=== PATIENT | male | born 1965 | race African-American/Black ===

== ENCOUNTER 2023-07-07 21:56 | Inpatient (IN) | payer OTHER, SELFPAY ==
[~2023-07-07 21:56] MED LIST: Iopamidol 370 76% 100 ML VIAL ONE
[2023-07-07 22:38] LABS: ALT (SGPT) 23 U/L (8-55); AST (SGOT) 26 U/L (5-34); Albumin 4.1 g/dL (3.5-5.0); Alkaline Phosphatase 138 U/L (40-110); Anion Gap 16 mmol/L (10-20); BUN (Urea Nitrogen) 17 mg/dL (8.4-25.7); Bilirubin, Total 0.6 mg/dL (0.2-1.2); Calc. Creatinine Clearance 0 mL/min (70-130); Calcium 9.4 mg/dL (7.8-10.44); Carbon Dioxide 22 mmol/L (22-29); Chloride 103 mmol/L (98-107); Estimated GFR 53; Globulin 3.7 g/dL (2.4-3.5); Glucose 121 mg/dL (70-105); Potassium 4.2 mmol/L (3.5-5.1); Protein, Total 7.8 g/dL (6.0-8.3); Sodium 137 mmol/L (136-145)
[2023-07-07 22:53] LABS: #Eosinphils 0.1 10x3/uL (0.0-0.5); #Monocytes 0.8 10x3/uL (0.0-1.1); #Neutrophils 4.2 10x3/uL (1.5-8.4); %Basophils 0.4 % (0.0-2.0); %Eosinophils 1.6 % (0.0-6.0); %Lymphocytes 23.3 % (18.0-47.0); %Monocytes 11.2 % (0.0-10.0); %Neutrophils 63.2 % (40.0-75.0); Hematocrit 48.2 % (38.8-50.0); Hemoglobin 16.4 g/dL (13.5-17.5); Mean Corpuscular Hemoglobin 30.7 pg (27.0-33.0); Mean Corpuscular Volume 90.1 fl (81.2-95.1); Mean Platelet Volume 10.1 fl (7.4-10.4); Platelet Count 385 10x3/uL (150-450); RBC Distribution Width 12.4 % (11.5-14.5); Red Blood Cell (RBC) Count 5.35 10x6/uL (4.32-5.72); White Blood Cell (WBC) Count 6.7 10x3/uL (3.5-10.5)
[2023-07-07 23:16] LABS: SARS-CoV-2 NAA Rapid Test Not Detected (NotDetected)
[2023-07-07 23:39] LABS: Bilirubin Neg (Negative); Blood, Urine Negative (Negative); Clarity Clear (Clear); Glucose, Urine (Dipstick) Normal (Negative); Ketone, Urine Negative (Negative); Leukocyte Negative (Negative); Nitrite Negative (Negative); Protein, Urine (Dipstick) 30 mg/dl (Neg-Trace); Urobilinogen Normal mg/dL (Less than 2)
[2023-07-08 00:01] LABS: Bacteria/HPF None Seen HPF (None Seen); CAUTI Indications for Culture Alt mental st,lethar; RBC/HPF None Seen HPF (0-3); Squamous Epithelial None Seen HPF (0-3); WBC/HPF None Seen HPF (0-3)
[2023-07-08] MEDS ORDERED: Acetaminophen 500 MG TAB ONE (00:01)
[2023-07-08 00:02] LABS: Urine Culture Reflex No No
[2023-07-08] MEDS ORDERED: Guaifenesin DM 100-10/5 ML UDCUP PO PRN (00:49)
[2023-07-08] MEDS ORDERED: Calcium Carbonate 500 MG ChewTAB PO PRN (00:49)
[2023-07-08] MEDS ORDERED: niCARdipine 25 MG/10 ML SDV ONE ×2 (01:00→05:42)
[2023-07-08] MEDS ORDERED: niCARdipine 25 MG in Sodium Chloride 0.9% 250 ML 250 ML IVPB SCH (01:00)
[2023-07-08 04:53] LABS: Anion Gap 16 mmol/L (10-20); BUN (Urea Nitrogen) 15 mg/dL (8.4-25.7); Calc. Creatinine Clearance 0 mL/min (70-130); Calcium 9.7 mg/dL (7.8-10.44); Carbon Dioxide 22 mmol/L (22-29); Cardiac Risk 4.1 (Less than 4.5); Chloride 103 mmol/L (98-107); Cholesterol 243 mg/dl (< 200 Desired); Estimated GFR 65; Glucose 134 mg/dL (70-105); HDL Cholesterol 60 mg/dL (>60 Neg Risk); LDL Cholesterol, Calculated 169 mg/dL; Potassium 3.5 mmol/L (3.5-5.1); Sodium 137 mmol/L (136-145); Triglycerides 72 mg/dL (Less than 150)
[2023-07-08 04:59] LABS: Troponin I 0.027 ng/mL (< 0.028)
[2023-07-08] MEDS: Acetaminophen 325 MG TAB PO PRN (06:35)
[2023-07-08] MEDS: Ondansetron PF 4 MG/2 ML Vial IVP PRN (07:12)
[2023-07-08] MEDS: Spironolactone 25 MG TAB PO SCH (08:42)
[2023-07-08] MEDS: Folic Acid 1 MG TAB PO SCH (08:42)
[2023-07-08] MEDS: Carvedilol 12.5 MG TAB PO SCH (08:42)
[2023-07-08] MEDS: Aspirin 81 mg Enteric Coated Tablet PO SCH (08:42)
[2023-07-08] MEDS: Enoxaparin 40 MG (0.4 mL) SYRINGE SC SCH (08:43)
[2023-07-08] MEDS: Losartan 25 MG TAB PO SCH ×2 (08:43→16:20)
[2023-07-08] MEDS: Thiamine 100 MG TAB PO SCH (08:43)
[2023-07-08] MEDS: niCARdipine 25 MG in Sodium Chloride 0.9% 250 ML 250 ML IVPB SCH (13:14)
[2023-07-08] MEDS ORDERED: Lorazepam 2 MG/ML VIAL IM PRN (14:31)
[2023-07-08] MEDS ORDERED: Ondansetron ODT 4 MG TAB PO PRN (14:31)
[2023-07-08] MEDS ORDERED: Electrolyte Replacement Protocol 1 EACH FS SCH (14:45)
[2023-07-08] MEDS: Magnesium 2 GM/50 ML(in water) 2 GM in Premix 1 BAG IVPB SCH (16:19)
[2023-07-08] MEDS: Multivit, Therapeutic 1 TAB PO SCH (16:20)
[2023-07-08] MEDS: Potassium Chloride 20 MEQ TAB PO SCH (16:20)
[2023-07-08] MEDS: Carvedilol 25 MG TAB PO SCH (16:21)
[2023-07-08] MEDS: Atorvastatin Calcium 20 MG TAB PO SCH (19:54)
[2023-07-09] MEDS: Lorazepam 1 MG TAB PO PRN (00:20)
[2023-07-09] MEDS: Lorazepam 2 MG/ML VIAL SLOW IVP PRN (00:33)
[2023-07-09 03:21] LABS: #Eosinphils 0.1 10x3/uL (0.0-0.5); #Monocytes 1.3 10x3/uL (0.0-1.1); #Neutrophils 7.6 10x3/uL (1.5-8.4); %Basophils 0.3 % (0.0-2.0); %Eosinophils 0.5 % (0.0-6.0); %Lymphocytes 12.6 % (18.0-47.0); %Monocytes 12.9 % (0.0-10.0); %Neutrophils 73.5 % (40.0-75.0); Hematocrit 50.7 % (38.8-50.0); Hemoglobin 17.2 g/dL (13.5-17.5); Mean Corpuscular HGB CONC 33.9 g/dL (32.0-36.0); Mean Corpuscular Hemoglobin 31.1 pg (27.0-33.0); Mean Corpuscular Volume 91.7 fl (81.2-95.1); Mean Platelet Volume 9.8 fl (7.4-10.4); Platelet Count 469 10x3/uL (150-450); RBC Distribution Width 12.5 % (11.5-14.5); Red Blood Cell (RBC) Count 5.53 10x6/uL (4.32-5.72); White Blood Cell (WBC) Count 10.4 10x3/uL (3.5-10.5)
[2023-07-09 03:38] LABS: Anion Gap 15 mmol/L (10-20); BUN (Urea Nitrogen) 18 mg/dL (8.4-25.7); Calc. Creatinine Clearance 54 mL/min (70-130); Calcium 9.4 mg/dL (7.8-10.44); Carbon Dioxide 23 mmol/L (22-29); Chloride 102 mmol/L (98-107); Estimated GFR 51; Glucose 150 mg/dL (70-105); Magnesium 2.4 mg/dL (1.6-2.6); Potassium 4.3 mmol/L (3.5-5.1); Sodium 136 mmol/L (136-145)
[2023-07-09] MEDS: Losartan 50 MG TAB PO SCH (08:07)
[2023-07-09] MEDS: Multivit, Therapeutic 1 TAB PO SCH (08:08)
[2023-07-09 10:15] LABS: Magnesium 2.2 mg/dL (1.6-2.6); Phosphorus 3.2 mg/dL (2.3-4.7)
[2023-07-09 12:26] LABS: Free T4 (Free Thyroxine) 1.26 ng/dL (0.70-1.48)
[2023-07-09 15:40] LABS: Thyroid Stimulating Hormone 0.2171 uIU/mL (0.35-4.94)
[2023-07-09] MEDS: Morphine 2 MG/ML VIAL SLOW IVP SCH (20:28)
[2023-07-09] MEDS: Ketorolac Tromethamine 30 MG (1 mL) VIAL IVP SCH (23:49)
[2023-07-10 03:17] LABS: Hematocrit 52.1 % (38.8-50.0); Hemoglobin 17.5 g/dL (13.5-17.5); Mean Corpuscular HGB CONC 33.6 g/dL (32.0-36.0); Mean Corpuscular Volume 92.2 fl (81.2-95.1); Mean Platelet Volume 9.9 fl (7.4-10.4); Platelet Count 455 10x3/uL (150-450); RBC Distribution Width 12.8 % (11.5-14.5); Red Blood Cell (RBC) Count 5.65 10x6/uL (4.32-5.72); White Blood Cell (WBC) Count 24.7 10x3/uL (3.5-10.5)
[2023-07-10 03:24] LABS: MDiff Complete? YES
[2023-07-10] MEDS: Lorazepam 2 MG/ML VIAL SLOW IVP SCH (03:34)
[2023-07-10 03:40] LABS: ALT (SGPT) 61 U/L (8-55); AST (SGOT) 49 U/L (5-34); Albumin 3.7 g/dL (3.5-5.0); Alkaline Phosphatase 155 U/L (40-110); Anion Gap 16 mmol/L (10-20); BUN (Urea Nitrogen) 25 mg/dL (8.4-25.7); Bilirubin, Total 0.9 mg/dL (0.2-1.2); Calc. Creatinine Clearance 55 mL/min (70-130); Calcium 9.5 mg/dL (7.8-10.44); Carbon Dioxide 22 mmol/L (22-29); Chloride 104 mmol/L (98-107); Estimated GFR 52; Globulin 4.1 g/dL (2.4-3.5); Glucose 141 mg/dL (70-105); Protein, Total 7.8 g/dL (6.0-8.3); Sodium 137 mmol/L (136-145)
[2023-07-10 03:47] LABS: Platelet Adequacy Comment Appears Increased; RBC Morph Comment Within Normal Limits
[2023-07-10 03:49] LABS: Band 7 % (5-11); Eosinophils 1 % (0-10); Lymphocytes 9 % (21-51); Metamyelocyte 2 % (0-0); Monocytes 8 % (0-10); Neutrophil 73 % (42-75)
[2023-07-10] MEDS: Carvedilol 25 MG TAB PO SCH (08:48)
[2023-07-10 10:29] LABS: Complement-C4 48 mg/dL (15-53)
[2023-07-10] MEDS: Vancomycin 1.5 GRAM/300 ML BAG 1.5 GM in Premix 1 BAG IVPB SCH (11:19)
[2023-07-10] MEDS: cefTRIAXone\\ROCEPHIN 2 GM in Sodium Chloride 0.9% 100 ML IVPB SCH (11:33)
[2023-07-10] MEDS: Azithromycin 500 MG in Sodium Chloride 0.9% 250 ML 250 ML IVPB SCH (11:34)
[2023-07-10 12:34] LABS: ANA Symphony (Qualitative) Negative (Negative); ANA Symphony (Quantitative) 0.2 Ratio (< 0.7 Negative); EliA APS New Method **** NEW METHOD ****; EliA RAS New Method **** NEW METHOD ****; Mitochondrial Ab 1.4 U/mL (<4 Negative); Thyroid Peroxidase IgG Ab 6.3 IU/mL (<25 Normal); beta-2-Glycoprotein I IgA Ab 5.3 U/mL (<7 Negative); dsDNA IgG Antibody 1.4 IU/mL (<10 Negative)
[2023-07-10] MEDS: Lorazepam 1 MG TAB PO PRN (12:39)
[2023-07-10] MEDS: Morphine 2 MG/ML VIAL SLOW IVP PRN (16:00)
[2023-07-10 16:17] LABS: Bilirubin Neg (Negative); Blood, Urine 10 (Negative); Clarity Clear (Clear); Glucose, Urine (Dipstick) 50 mg/dL (Negative); Ketone, Urine Negative (Negative); Leukocyte Negative (Negative); Nitrite Negative (Negative); Protein, Urine (Dipstick) 100 mg/dl (Neg-Trace)
[2023-07-10 16:34] LABS: Bacteria/HPF 1+ HPF (None Seen); CAUTI Indications for Culture Immunosuppressed; Mucous/LPF 1+ LPF (<2+); RBC/HPF 0-3 HPF (0-3); Squamous Epithelial 0-3 HPF (0-3); WBC/HPF 0-3 HPF (0-3)
[2023-07-10 16:35] LABS: Urine Culture Reflex Yes Yes
[2023-07-10] MEDS ORDERED: Vancomycin 1 GM in Premix 1 BAG IVPB SCH (21:00)
[2023-07-10] MEDS: Lorazepam 0.5 MG TAB PO PRN (22:42)
[2023-07-11 04:08] LABS: Hematocrit 53.4 % (38.8-50.0); Hemoglobin 18.3 g/dL (13.5-17.5); Mean Corpuscular HGB CONC 34.3 g/dL (32.0-36.0); Mean Corpuscular Hemoglobin 30.9 pg (27.0-33.0); Mean Corpuscular Volume 90.2 fl (81.2-95.1); Mean Platelet Volume 9.7 fl (7.4-10.4); Platelet Count 517 10x3/uL (150-450); RBC Distribution Width 12.9 % (11.5-14.5); Red Blood Cell (RBC) Count 5.92 10x6/uL (4.32-5.72); White Blood Cell (WBC) Count 19.3 10x3/uL (3.5-10.5)
[2023-07-11] MEDS: Morphine 4 MG/ML VIAL SLOW IVP PRN (04:11)
[2023-07-11 04:15] LABS: MDiff Complete? YES
[2023-07-11 04:34] LABS: ALT (SGPT) 60 U/L (8-55); AST (SGOT) 35 U/L (5-34); Albumin 3.5 g/dL (3.5-5.0); Alkaline Phosphatase 150 U/L (40-110); Anion Gap 17 mmol/L (10-20); BUN (Urea Nitrogen) 45 mg/dL (8.4-25.7); Bilirubin, Total 0.7 mg/dL (0.2-1.2); Calc. Creatinine Clearance 47 mL/min (70-130); Calcium 9.8 mg/dL (7.8-10.44); Carbon Dioxide 25 mmol/L (22-29); Chloride 103 mmol/L (98-107); Estimated GFR 46; Globulin 4.4 g/dL (2.4-3.5); Glucose 154 mg/dL (70-105); Potassium 4.8 mmol/L (3.5-5.1); Protein, Total 7.9 g/dL (6.0-8.3); Sodium 140 mmol/L (136-145)
[2023-07-11 04:39] LABS: Platelet Adequacy Comment Appears Increased; RBC Morph Comment Within Normal Limits
[2023-07-11 04:42] LABS: Band 8 % (5-11); Eosinophils 1 % (0-10); Lymphocytes 8 % (21-51); Metamyelocyte 1 % (0-0); Monocytes 6 % (0-10); Neutrophil 76 % (42-75)
[2023-07-11] MEDS: Vancomycin 1 GM in Sodium Chloride 0.9% 250 ML 250 ML IVPB SCH (04:42)
[2023-07-11] MEDS: Lorazepam 1 MG TAB PO PRN (08:44)
[2023-07-11] MEDS: NOREPINEPHRINE 8 MG/250 ML-D5W 250 ML ONE (10:15)
[2023-07-11 10:40] LABS: Hematocrit 52.5 % (38.8-50.0); Hemoglobin 16.9 g/dL (13.5-17.5); MDiff Complete? YES; Mean Corpuscular HGB CONC 32.2 g/dL (32.0-36.0); Mean Corpuscular Hemoglobin 31.4 pg (27.0-33.0); Mean Corpuscular Volume 97.6 fl (81.2-95.1); Mean Platelet Volume 10.2 fl (7.4-10.4); Platelet Count 553 10x3/uL (150-450); RBC Distribution Width 13.2 % (11.5-14.5); Red Blood Cell (RBC) Count 5.38 10x6/uL (4.32-5.72); White Blood Cell (WBC) Count 21.9 10x3/uL (3.5-10.5)
[2023-07-11] MEDS ORDERED: Ventilator Sedation Protocol FS PRN (10:45)
[2023-07-11] MEDS ORDERED: Vasopressin 20 UNITS in Sodium Chloride 0.9% 50 ML IV SCH (10:45)
[2023-07-11 10:50] LABS: INR-International Normal Ratio 1.1; PTT 29.9 sec (22.0-33.0); Prothrombin Time 12.2 sec (9.5-12.1)
[2023-07-11 10:55] LABS: ALT (SGPT) 52 U/L (8-55); AST (SGOT) 34 U/L (5-34); Albumin 3.1 g/dL (3.5-5.0); Alkaline Phosphatase 152 U/L (40-110); Anion Gap 19 mmol/L (10-20); BUN (Urea Nitrogen) 54 mg/dL (8.4-25.7); Bilirubin, Total 0.4 mg/dL (0.2-1.2); CK (CPK) 76 U/L (30-200); Calc. Creatinine Clearance 33 mL/min (70-130); Carbon Dioxide 22 mmol/L (22-29); Chloride 107 mmol/L (98-107); Estimated GFR 28; Globulin 3.3 g/dL (2.4-3.5); Glucose 157 mg/dL (70-105); Magnesium 2.9 mg/dL (1.6-2.6); Phosphorus 8.5 mg/dL (2.3-4.7); Potassium 6.2 mmol/L (3.5-5.1); Protein, Total 6.4 g/dL (6.0-8.3); Sodium 142 mmol/L (136-145)
[2023-07-11] MEDS ORDERED: Dextrose 5% in Water 1,000 ML IV PRN (10:55)
[2023-07-11] MEDS ORDERED: Glucagon 1 MG/ML KIT IM PRN (10:55)
[2023-07-11] MEDS ORDERED: Propofol BOLUS 1,000 MG/100 ML VIAL IV PRN (11:00)
[2023-07-11] MEDS ORDERED: Phenylephrine 40 MG in Sodium Chloride 0.9% 250 ML 250 ML IVPB SCH (11:00)
[2023-07-11] MEDS ORDERED: Fentanyl BOLUS 250 ML IVPB PRN (11:00)
[2023-07-11] MEDS ORDERED: DISCONTINUE PREVIOUS NARCOTIC PAIN MEDICATIONS AND BENZODIAZEPINES FS SCH (11:00)
[2023-07-11] MEDS: Carvedilol 12.5 MG TAB PO SCH (11:09)
[2023-07-11] MEDS: Losartan 50 MG TAB PO SCH (11:09)
[2023-07-11] MEDS: Calcium Gluc 4.6 MEQ/10 ML (100 MG/ML) SLOW IVP SCH (11:10)
[2023-07-11] MEDS: Insulin Regular 300 UNITS/3 ML VIAL IVP SCH (11:10)
[2023-07-11] MEDS: Phenylephrine 40 MG/NS 250 ML 40 MG in Premix 1 BAG IVPB SCH (11:10)
[2023-07-11] MEDS ORDERED: DOPamine 400 MG/D5W 250 ML 250 ML IVPB SCH (11:15)
[2023-07-11] MEDS: Vasopressin 20 UNITS, Admixture Fee 1 EACH in Sodium Chloride 0.9% 50 ML IV SCH (11:16)
[2023-07-11] MEDS: Propofol 1,000 MG/100 ML VIAL IV PRN (11:23)
[2023-07-11] MEDS: Sodium Bicarb 50 mEq/50 ML VIAL IVP SCH (11:26)
[2023-07-11] MEDS: FENTANYL 2,000MCG/100-0.9%NACL 100 ML IVPB SCH (11:37)
[2023-07-11 12:09] LABS: Band 38 % (5-11); Metamyelocyte 3 % (0-0); Neutrophil 44 % (42-75)
[2023-07-11 12:18] LABS: Lymphocytes 9 % (21-51); Monocytes 6 % (0-10)
[2023-07-11 12:22] LABS: Large Platelets SLIGHT (None Seen); Platelet Adequacy Comment Appears Increased; Vacuoles SLIGHT
[2023-07-11 12:23] LABS: Macrocytosis SLIGHT = 6-15 cells (100X) (0-5/hpf)
[2023-07-11 12:57] LABS: Analyzer IN Cardio CS ICU; Base Excess (BEa) -6.2 mEq/L (-2.0 to +3.0); CO2 Tension 74.4 mmHg (35.0-45.0); Calcium, Ionized (arterial) 1.19 mmol/L (1.12-1.30); Carboxyhemoglobin (COHb) 0.4 gm% (0.0-3.0); Hematocrit-ABG 52 % (42.0-52.0); Hemoglobin (Hb) 17.8 g/dL (14.0-18.0); O2 Tension (PaO2), arterial 106.9 mmHg (80.0-100.0); Potassium - ABG Lab 6.05 mmol/L (3.70-5.30); Puncture Site Other Site; pH, Arterial 7.145 (7.35-7.45)
[2023-07-11 14:43] LABS: Actual Bicarbonate (HCO3a) 26.6 mEq/L (22-28); Analyzer IN Cardio CS ICU; Base Excess (BEa) 1.8 mEq/L (-2.0 to +3.0); CO2 Tension 42.5 mmHg (35.0-45.0); Carboxyhemoglobin (COHb) 0.6 gm% (0.0-3.0); Hematocrit-ABG 46 % (42.0-52.0); Hemoglobin (Hb) 15.8 g/dL (14.0-18.0); O2 Tension (PaO2), arterial 263.8 mmHg (80.0-100.0); Potassium - ABG Lab 3.37 mmol/L (3.70-5.30); Puncture Site Arterial Line; pH, Arterial 7.415 (7.35-7.45)
[2023-07-11 14:48] LABS: ALV-art Gradient 396.075 mmHg (0-20)
[2023-07-11] MEDS: Dextrose 50% Abboject 50 ML SYRINGE SLOW IVP PRN (14:56)
[2023-07-11 15:01] LABS: Hematocrit 46.4 % (38.8-50.0); Hemoglobin 15.3 g/dL (13.5-17.5); Platelet Count 547 10x3/uL (150-450)
[2023-07-11] MEDS: Heparin 25,000 units/D5W 500 ML IVPB SCH (15:27)
[2023-07-11] MEDS: Cefepime 2 GM in Sodium Chloride 0.9% 100 ML IVPB SCH (15:32)
[2023-07-11] MEDS: Heparin 10,000 UNITS/ 10 ML VIAL SLOW IVP SCH (15:52)
[2023-07-11] MEDS ORDERED: Carvedilol 25 MG TAB PO SCH (17:00)
[2023-07-11] MEDS: NOREPINEPHRINE 8 MG/250 ML-D5W 250 ML IVPB SCH (17:15)
[2023-07-11 18:28] LABS: Anion Gap 15 mmol/L (10-20); BUN (Urea Nitrogen) 58 mg/dL (8.4-25.7); Calc. Creatinine Clearance 42 mL/min (70-130); Calcium 8.9 mg/dL (7.8-10.44); Carbon Dioxide 25 mmol/L (22-29); Chloride 105 mmol/L (98-107); Estimated GFR 38; Glucose 141 mg/dL (70-105); Potassium 3.8 mmol/L (3.5-5.1); Sodium 141 mmol/L (136-145)
[2023-07-12 03:44] LABS: ALT (SGPT) 46 U/L (8-55); AST (SGOT) 47 U/L (5-34); Albumin 2.8 g/dL (3.5-5.0); Alkaline Phosphatase 115 U/L (40-110); Anion Gap 15 mmol/L (10-20); BUN (Urea Nitrogen) 50 mg/dL (8.4-25.7); Bilirubin, Total 0.5 mg/dL (0.2-1.2); Calc. Creatinine Clearance 50 mL/min (70-130); Calcium 8.7 mg/dL (7.8-10.44); Carbon Dioxide 23 mmol/L (22-29); Chloride 107 mmol/L (98-107); Estimated GFR 46; Globulin 3.5 g/dL (2.4-3.5); Glucose 163 mg/dL (70-105); Potassium 3.8 mmol/L (3.5-5.1); Protein, Total 6.3 g/dL (6.0-8.3); Sodium 141 mmol/L (136-145)
[2023-07-12 03:59] LABS: PTT 32.8 sec (22.0-33.0)
[2023-07-12 04:25] LABS: #Basophils 0.1 10x3/uL (0.0-0.2); #Monocytes 1.6 10x3/uL (0.0-1.1); #Neutrophils 19.1 10x3/uL (1.5-8.4); %Basophils 0.3 % (0.0-2.0); %Eosinophils 0.1 % (0.0-6.0); %Lymphocytes 6.4 % (18.0-47.0); %Monocytes 7.2 % (0.0-10.0); %Neutrophils 85.1 % (40.0-75.0); Hematocrit 43.7 % (38.8-50.0); Hemoglobin 14.8 g/dL (13.5-17.5); Mean Corpuscular HGB CONC 33.9 g/dL (32.0-36.0); Mean Corpuscular Hemoglobin 30.8 pg (27.0-33.0); Mean Corpuscular Volume 90.9 fl (81.2-95.1); Mean Platelet Volume 10.6 fl (7.4-10.4); Platelet Count 548 10x3/uL (150-450); Red Blood Cell (RBC) Count 4.81 10x6/uL (4.32-5.72); White Blood Cell (WBC) Count 22.4 10x3/uL (3.5-10.5)
[2023-07-12 05:08] LABS: Band 34 % (5-11); Lymphocytes 2 % (21-51); Metamyelocyte 10 % (0-0); Monocytes 4 % (0-10); Reactive Lymphocytes 6 % (0-10)
[2023-07-12 05:10] LABS: Giant Platelets SLIGHT HPF (0-5); Platelet Adequacy Comment Appears Increased
[2023-07-12 05:13] LABS: Neutrophil 44 % (42-75)
[2023-07-12] MEDS ORDERED: Losartan 50 MG TAB PO SCH (09:00)
[2023-07-12] MEDS: Lorazepam 2 MG/ML VIAL SLOW IVP PRN (19:51)
[2023-07-13 03:48] LABS: ALT (SGPT) 39 U/L (8-55); AST (SGOT) 41 U/L (5-34); Albumin 2.7 g/dL (3.5-5.0); Alkaline Phosphatase 116 U/L (40-110); Anion Gap 12 mmol/L (10-20); BUN (Urea Nitrogen) 32 mg/dL (8.4-25.7); Bilirubin, Total 0.5 mg/dL (0.2-1.2); Calc. Creatinine Clearance 0 mL/min (70-130); Calcium 8.6 mg/dL (7.8-10.44); Carbon Dioxide 27 mmol/L (22-29); Chloride 107 mmol/L (98-107); Estimated GFR 65; Globulin 3.5 g/dL (2.4-3.5); Glucose 157 mg/dL (70-105); Magnesium 2.4 mg/dL (1.6-2.6); Phosphorus 2.3 mg/dL (2.3-4.7); Potassium 3.7 mmol/L (3.5-5.1); Protein, Total 6.2 g/dL (6.0-8.3); Sodium 142 mmol/L (136-145)
[2023-07-13 04:01] LABS: #Basophils 0.1 10x3/uL (0.0-0.2); #Eosinphils 0.2 10x3/uL (0.0-0.5); #Monocytes 1.2 10x3/uL (0.0-1.1); #Neutrophils 11.5 10x3/uL (1.5-8.4); %Basophils 0.6 % (0.0-2.0); %Lymphocytes 8.6 % (18.0-47.0); %Monocytes 8.4 % (0.0-10.0); %Neutrophils 78.6 % (40.0-75.0); Hematocrit 40.8 % (38.8-50.0); Hemoglobin 13.7 g/dL (13.5-17.5); Mean Corpuscular HGB CONC 33.6 g/dL (32.0-36.0); Mean Corpuscular Hemoglobin 30.9 pg (27.0-33.0); Mean Corpuscular Volume 91.9 fl (81.2-95.1); Mean Platelet Volume 10.1 fl (7.4-10.4); Platelet Count 430 10x3/uL (150-450); RBC Distribution Width 13.1 % (11.5-14.5); Red Blood Cell (RBC) Count 4.44 10x6/uL (4.32-5.72); White Blood Cell (WBC) Count 14.6 10x3/uL (3.5-10.5)
[2023-07-13] MEDS: Heparin 10,000 UNITS/ 10 ML VIAL SLOW IVP SCH (04:27)
[2023-07-13] MEDS ORDERED: Etomidate 40 MG (20 mL) VIAL ONE (07:30)
[2023-07-13] MEDS: Etomidate 40 MG (20 mL) VIAL IVP SCH (07:45)
[2023-07-13] MEDS: Metoprolol Tartrate 5 MG (5 mL) VIAL IVP SCH (08:23)
[2023-07-13 09:14] LABS: Ref Lab Test Ordered VGCC AB; Reference Lab Name LABCORP
[2023-07-13 09:17] LABS: Reference Lab Name LABCORP
[2023-07-13] MEDS: Famotidine/PF 20 mg/2ml Vial SLOW IVP SCH (10:08)
[2023-07-13] MEDS: Furosemide 40 MG (4 mL) VIAL SLOW IVP SCH (10:08)
[2023-07-13 13:33] LABS: Hematocrit 44.7 % (38.8-50.0); Hemoglobin 15.2 g/dL (13.5-17.5); Platelet Count 438 10x3/uL (150-450)
[2023-07-13] MEDS: Enoxaparin 40 MG (0.4 mL) SYRINGE SC SCH (13:51)
[2023-07-13] MEDS: Enalaprilat Dihydrate 1.25 MG/ML VIAL SLOW IVP SCH (13:52)
[2023-07-13] MEDS: Micafungin 100 MG in Sodium Chloride 0.9% 100 ML IVPB SCH (21:09)
[2023-07-13] MEDS ORDERED: Piperacillin/Tazobactam 4.5 GM in Sodium Chloride 0.9% 100 ML IVPB SCH (22:00)
[2023-07-13] MEDS: Piperacillin/Tazobactam 3.375 GM in Sodium Chloride 0.9% 100 ML IVPB SCH (22:41)
[2023-07-14] MEDS: Piperacillin/Tazobactam 3.375 GM in Sodium Chloride 0.9% 100 ML IVPB SCH (02:32)
[2023-07-14 05:17] LABS: ALT (SGPT) 101 U/L (8-55); AST (SGOT) 119 U/L (5-34); Albumin 2.8 g/dL (3.5-5.0); Alkaline Phosphatase 217 U/L (40-110); Anion Gap 13 mmol/L (10-20); BUN (Urea Nitrogen) 23 mg/dL (8.4-25.7); Bilirubin, Total 0.7 mg/dL (0.2-1.2); Calc. Creatinine Clearance 70 mL/min (70-130); Calcium 9.1 mg/dL (7.8-10.44); Carbon Dioxide 28 mmol/L (22-29); Chloride 105 mmol/L (98-107); Estimated GFR 69; Glucose 190 mg/dL (70-105); Magnesium 2.3 mg/dL (1.6-2.6); Potassium 3.6 mmol/L (3.5-5.1); Protein, Total 6.8 g/dL (6.0-8.3); Sodium 142 mmol/L (136-145)
[2023-07-14 05:18] LABS: ALV-art Gradient 152.175 mmHg (0-20); Actual Bicarbonate (HCO3a) 31.6 mEq/L (22-28); Analyzer IN Cardio CS ICU; Base Excess (BEa) 6.8 mEq/L (-2.0 to +3.0); CO2 Tension 44.9 mmHg (35.0-45.0); Calcium, Ionized (arterial) 1.17 mmol/L (1.12-1.30); Carboxyhemoglobin (COHb) 0.7 gm% (0.0-3.0); Critical Notified By: CP.PH; Critical Notified Whom: RN-Demi; Hematocrit-ABG 45 % (42.0-52.0); Hemoglobin (Hb) 15.2 g/dL (14.0-18.0); O2 Tension (PaO2), arterial 148.2 mmHg (80.0-100.0); Potassium - ABG Lab 3.69 mmol/L (3.70-5.30); Puncture Site Arterial Line; RapidComm Collect By CP.PH; pH, Arterial 7.465 (7.35-7.45)
[2023-07-14 06:05] LABS: Hematocrit 44.1 % (38.8-50.0); Hemoglobin 14.6 g/dL (13.5-17.5); MDiff Complete? YES; Mean Corpuscular HGB CONC 33.1 g/dL (32.0-36.0); Mean Corpuscular Hemoglobin 30.5 pg (27.0-33.0); Mean Corpuscular Volume 92.3 fl (81.2-95.1); Mean Platelet Volume 9.8 fl (7.4-10.4); Platelet Count 386 10x3/uL (150-450); Red Blood Cell (RBC) Count 4.78 10x6/uL (4.32-5.72); White Blood Cell (WBC) Count 14.7 10x3/uL (3.5-10.5)
[2023-07-14] MEDS: Metoprolol Tartrate 5 MG (5 mL) VIAL IVP PRN (06:17)
[2023-07-14 06:59] LABS: Band 5 % (5-11); Eosinophils 3 % (0-10); Lymphocytes 6 % (21-51); Monocytes 15 % (0-10); Myelocyte 2 % (0-0); Neutrophil 64 % (42-75); Promyelocytes 2 % (0-0); Reactive Lymphocytes 3 % (0-10)
[2023-07-14 07:01] LABS: Platelet Adequacy Comment Appears Adequate
[2023-07-14] MEDS ORDERED: cloNIDine 0.2 MG TAB PO PRN (07:16)
[2023-07-14] MEDS: Furosemide 40 MG (4 mL) VIAL SLOW IVP SCH (08:15)
[2023-07-14] MEDS: Amlodipine 10 MG TAB PER TUBE SCH (08:16)
[2023-07-14] MEDS: hydrALAZINE 25 MG TAB PO SCH (10:01)
[2023-07-14] MEDS: Enalaprilat Dihydrate 1.25 MG/ML VIAL SLOW IVP SCH ×2 (12:13→18:34)
[2023-07-14] MEDS: Carvedilol 6.25 MG TAB PO SCH (12:13)
[2023-07-14] MEDS ORDERED: Carvedilol 6.25 MG TAB PO SCH (17:00)
[2023-07-14] MEDS: Carvedilol 12.5 MG TAB PO SCH (17:35)
[2023-07-14] MEDS: Artificial Tear Sol 15 ML BOT EA EYE PRN (17:38)
[2023-07-14] MEDS ORDERED: Dextrose 5% in Water 1,000 ML IV PRN (17:43)
[2023-07-14] MEDS ORDERED: Dextrose 50% Abboject 50 ML SYRINGE SLOW IVP PRN (17:43)
[2023-07-14] MEDS ORDERED: HumaLOG 300 UNITS/3 ML VIAL SC PRN (17:43)
[2023-07-14] MEDS ORDERED: Glucagon 1 MG/ML KIT IM PRN (17:43)
[2023-07-15 03:40] LABS: Hematocrit 44.7 % (38.8-50.0); Hemoglobin 14.5 g/dL (13.5-17.5); Mean Corpuscular HGB CONC 32.4 g/dL (32.0-36.0); Mean Corpuscular Hemoglobin 30.4 pg (27.0-33.0); Mean Corpuscular Volume 93.7 fl (81.2-95.1); Mean Platelet Volume 9.9 fl (7.4-10.4); Platelet Count 483 10x3/uL (150-450); RBC Distribution Width 13.2 % (11.5-14.5); Red Blood Cell (RBC) Count 4.77 10x6/uL (4.32-5.72); White Blood Cell (WBC) Count 17.5 10x3/uL (3.5-10.5)
[2023-07-15 04:02] LABS: Actual Bicarbonate (HCO3a) 29.9 mEq/L (22-28); Analyzer IN Cardio CS ICU; Base Excess (BEa) 5.3 mEq/L (-2.0 to +3.0); CO2 Tension 43.6 mmHg (35.0-45.0); Carboxyhemoglobin (COHb) 0.6 gm% (0.0-3.0); Hematocrit-ABG 45 % (42.0-52.0); Hemoglobin (Hb) 15.3 g/dL (14.0-18.0); O2 Tension (PaO2), arterial 109.2 mmHg (80.0-100.0); Potassium - ABG Lab 4.18 mmol/L (3.70-5.30); Puncture Site RBA; pH, Arterial 7.454 (7.35-7.45)
[2023-07-15 04:18] LABS: ALT (SGPT) 92 U/L (8-55); AST (SGOT) 62 U/L (5-34); Albumin 2.9 g/dL (3.5-5.0); Alkaline Phosphatase 231 U/L (40-110); Anion Gap 13 mmol/L (10-20); BUN (Urea Nitrogen) 25 mg/dL (8.4-25.7); Band 9 % (5-11); Bilirubin, Total 0.5 mg/dL (0.2-1.2); Calc. Creatinine Clearance 60 mL/min (70-130); Calcium 9.6 mg/dL (7.8-10.44); Carbon Dioxide 31 mmol/L (22-29); Chloride 104 mmol/L (98-107); Eosinophils 5 % (0-10); Estimated GFR 60; Globulin 4.3 g/dL (2.4-3.5); Glucose 168 mg/dL (70-105); Lymphocytes 5 % (21-51); Magnesium 2.3 mg/dL (1.6-2.6); Metamyelocyte 1 % (0-0); Monocytes 21 % (0-10); Myelocyte 1 % (0-0); Neutrophil 49 % (42-75); Phosphorus 3.6 mg/dL (2.3-4.7); Potassium 4.1 mmol/L (3.5-5.1); Promyelocytes 6 % (0-0); Protein, Total 7.2 g/dL (6.0-8.3); Reactive Lymphocytes 3 % (0-10); Sodium 144 mmol/L (136-145)
[2023-07-15 04:21] LABS: Platelet Adequacy Comment Platelets Increased
[2023-07-15 04:22] LABS: MDiff Complete? YES
[2023-07-15] MEDS: Dexmedetomidine In 0.9 % NaCl 100 ML IVPB SCH (07:32)
[2023-07-15] MEDS: acetaZOLAMIDE Sodium 500 mg Vial IVP SCH (07:41)
[2023-07-15] MEDS: HumaLOG 300 UNITS/3 ML VIAL SC PRN (08:54)
[2023-07-15 12:48] LABS: Platelet Count 483 10x3/uL (150-450)
[2023-07-15] MEDS: Lantus 1000 UNITS/10 ML VIAL SC SCH (20:04)
[2023-07-16 03:38] LABS: Hematocrit 43.8 % (38.8-50.0); Mean Corpuscular Hemoglobin 30.4 pg (27.0-33.0); Platelet Count 475 10x3/uL (150-450); RBC Distribution Width 13.4 % (11.5-14.5); Red Blood Cell (RBC) Count 4.61 10x6/uL (4.32-5.72); White Blood Cell (WBC) Count 25.3 10x3/uL (3.5-10.5)
[2023-07-16 03:46] LABS: Anion Gap 15 mmol/L (10-20); BUN (Urea Nitrogen) 35 mg/dL (8.4-25.7); Calc. Creatinine Clearance 47 mL/min (70-130); Calcium 9.5 mg/dL (7.8-10.44); Carbon Dioxide 26 mmol/L (22-29); Chloride 110 mmol/L (98-107); Estimated GFR 46; Glucose 182 mg/dL (70-105); Potassium 3.9 mmol/L (3.5-5.1); Sodium 147 mmol/L (136-145)
[2023-07-16 03:49] LABS: ALT (SGPT) 124 U/L (8-55); AST (SGOT) 119 U/L (5-34); Albumin 2.8 g/dL (3.5-5.0); Alkaline Phosphatase 267 U/L (40-110); Bilirubin, Direct 0.2 mg/dL (0.1-0.3); Bilirubin, Total 0.4 mg/dL (0.2-1.2); Protein, Total 7.5 g/dL (6.0-8.3)
[2023-07-16 04:18] LABS: Eosinophils 1 % (0-10); Lymphocytes 11 % (21-51); Metamyelocyte 2 % (0-0); Monocytes 13 % (0-10)
[2023-07-16 04:19] LABS: Neutrophil 73 % (42-75); Platelet Adequacy Comment Appears Increased; RBC Morph Comment Within Normal Limits
[2023-07-16 04:20] LABS: MDiff Complete? YES
[2023-07-16 05:06] LABS: Actual Bicarbonate (HCO3a) 26.5 mEq/L (22-28); Analyzer IN Cardio CS ICU; Base Excess (BEa) 1.6 mEq/L (-2.0 to +3.0); Calcium, Ionized (arterial) 1.24 mmol/L (1.12-1.30); Carboxyhemoglobin (COHb) 0.9 gm% (0.0-3.0); Critical Notified By: CP.PH; Hematocrit-ABG 43 % (42.0-52.0); Hemoglobin (Hb) 14.6 g/dL (14.0-18.0); O2 Tension (PaO2), arterial 104.4 mmHg (80.0-100.0); Potassium - ABG Lab 3.88 mmol/L (3.70-5.30); Puncture Site RBA; RapidComm Collect By CP.PH; pH, Arterial 7.408 (7.35-7.45)
[2023-07-16] MEDS: Losartan 25 MG TAB PO SCH (09:33)
[2023-07-16] MEDS: Carvedilol 25 MG TAB PO SCH (09:33)
[2023-07-16 18:27] LABS: Bilirubin Neg (Negative); Blood, Urine Negative (Negative); Clarity Clear (Clear); Glucose, Urine (Dipstick) 250 mg/dL (Negative); Ketone, Urine Negative (Negative); Leukocyte Negative (Negative); Nitrite Negative (Negative); Protein, Urine (Dipstick) 100 mg/dl (Neg-Trace)
[2023-07-16 19:36] LABS: RBC/HPF 0-3 HPF (0-3)
[2023-07-16 19:37] LABS: Bacteria/HPF 2+ HPF (None Seen); CAUTI Indications for Culture Fever or rigors; Squamous Epithelial 0-3 HPF (0-3)
[2023-07-16 19:39] LABS: Urine Culture Reflex No No
[2023-07-17 03:30] LABS: Actual Bicarbonate (HCO3a) 24.6 mEq/L (22-28); Analyzer IN Cardio CS ICU; Calcium, Ionized (arterial) 1.24 mmol/L (1.12-1.30); Carboxyhemoglobin (COHb) 0.5 gm% (0.0-3.0); Critical Notified By: CP.PH; Hematocrit-ABG 39 % (42.0-52.0); Hemoglobin (Hb) 13.3 g/dL (14.0-18.0); O2 Tension (PaO2), arterial 99.3 mmHg (80.0-100.0); Potassium - ABG Lab 4.12 mmol/L (3.70-5.30); Puncture Site RBA; RapidComm Collect By CP.PH; pH, Arterial 7.453 (7.35-7.45)
[2023-07-17 03:36] LABS: #Basophils 0.1 10x3/uL (0.0-0.2); #Eosinphils 0.4 10x3/uL (0.0-0.5); #Monocytes 1.9 10x3/uL (0.0-1.1); #Neutrophils 13.3 10x3/uL (1.5-8.4); %Basophils 0.5 % (0.0-2.0); %Eosinophils 2.3 % (0.0-6.0); %Lymphocytes 11.4 % (18.0-47.0); %Monocytes 10.3 % (0.0-10.0); %Neutrophils 72.4 % (40.0-75.0); Hematocrit 39.4 % (38.8-50.0); Hemoglobin 12.5 g/dL (13.5-17.5); Mean Corpuscular HGB CONC 31.7 g/dL (32.0-36.0); Mean Corpuscular Volume 94.5 fl (81.2-95.1); Mean Platelet Volume 9.9 fl (7.4-10.4); Platelet Count 440 10x3/uL (150-450); RBC Distribution Width 13.4 % (11.5-14.5); Red Blood Cell (RBC) Count 4.17 10x6/uL (4.32-5.72); White Blood Cell (WBC) Count 18.3 10x3/uL (3.5-10.5)
[2023-07-17 03:58] LABS: Anion Gap 13 mmol/L (10-20); BUN (Urea Nitrogen) 40 mg/dL (8.4-25.7); Bilirubin, Direct 0.2 mg/dL (0.1-0.3); Bilirubin, Total 0.3 mg/dL (0.2-1.2); Calc. Creatinine Clearance 56 mL/min (70-130); Calcium 9.3 mg/dL (7.8-10.44); Carbon Dioxide 24 mmol/L (22-29); Chloride 114 mmol/L (98-107); Estimated GFR 57; Glucose 138 mg/dL (70-105); Potassium 4.1 mmol/L (3.5-5.1); Protein, Total 6.8 g/dL (6.0-8.3); Sodium 147 mmol/L (136-145)
[2023-07-17 03:59] LABS: ALT (SGPT) 120 U/L (8-55); AST (SGOT) 82 U/L (5-34); Albumin 2.6 g/dL (3.5-5.0); Alkaline Phosphatase 251 U/L (40-110); Globulin 4.2 g/dL (2.4-3.5)
[2023-07-17 12:43] LABS: Hematocrit 41.2 % (38.8-50.0); Hemoglobin 13.2 g/dL (13.5-17.5); Platelet Count 426 10x3/uL (150-450)
[2023-07-17 15:15] LABS: IgG Serum 1987 mg/dL (603-1613)
[2023-07-17] MEDS ORDERED: Bisacodyl 10 MG SUPP PR PRN (15:17)
[2023-07-17] MEDS: Senokot S 8.6-50 MG TAB PO PRN (18:01)
[2023-07-18 05:24] LABS: #Basophils 0.1 10x3/uL (0.0-0.2); #Eosinphils 0.5 10x3/uL (0.0-0.5); #Monocytes 1.5 10x3/uL (0.0-1.1); #Neutrophils 14.3 10x3/uL (1.5-8.4); %Basophils 0.5 % (0.0-2.0); %Eosinophils 2.6 % (0.0-6.0); %Lymphocytes 10.5 % (18.0-47.0); %Monocytes 8.1 % (0.0-10.0); %Neutrophils 75.9 % (40.0-75.0); Hematocrit 41.9 % (38.8-50.0); Hemoglobin 13.7 g/dL (13.5-17.5); Mean Corpuscular HGB CONC 32.7 g/dL (32.0-36.0); Mean Corpuscular Hemoglobin 31.1 pg (27.0-33.0); Mean Platelet Volume 10.2 fl (7.4-10.4); Platelet Count 460 10x3/uL (150-450); RBC Distribution Width 13.2 % (11.5-14.5); Red Blood Cell (RBC) Count 4.41 10x6/uL (4.32-5.72); White Blood Cell (WBC) Count 18.9 10x3/uL (3.5-10.5)
[2023-07-18 05:26] LABS: ALV-art Gradient 168.575 mmHg (0-20); Actual Bicarbonate (HCO3a) 23.6 mEq/L (22-28); Analyzer IN Cardio CS ICU; Base Excess (BEa) 0.9 mEq/L (-2.0 to +3.0); CO2 Tension 32.1 mmHg (35.0-45.0); Calcium, Ionized (arterial) 1.22 mmol/L (1.12-1.30); Carboxyhemoglobin (COHb) 0.6 gm% (0.0-3.0); Hematocrit-ABG 42 % (42.0-52.0); Hemoglobin (Hb) 14.2 g/dL (14.0-18.0); O2 Tension (PaO2), arterial 76.5 mmHg (80.0-100.0); Potassium - ABG Lab 3.83 mmol/L (3.70-5.30); Puncture Site RBA; pH, Arterial 7.484 (7.35-7.45)
[2023-07-18 05:30] LABS: ALT (SGPT) 160 U/L (8-55); AST (SGOT) 137 U/L (5-34); Albumin 2.8 g/dL (3.5-5.0); Alkaline Phosphatase 284 U/L (40-110); Anion Gap 14 mmol/L (10-20); BUN (Urea Nitrogen) 39 mg/dL (8.4-25.7); Bilirubin, Total 0.4 mg/dL (0.2-1.2); Calc. Creatinine Clearance 54 mL/min (70-130); Calcium 9.1 mg/dL (7.8-10.44); Carbon Dioxide 22 mmol/L (22-29); Chloride 116 mmol/L (98-107); Estimated GFR 58; Globulin 4.5 g/dL (2.4-3.5); Glucose 179 mg/dL (70-105); Protein, Total 7.3 g/dL (6.0-8.3); Sodium 148 mmol/L (136-145)
[2023-07-18] MEDS: Morphine 2 MG/ML VIAL SLOW IVP PRN (16:58)
[2023-07-19 04:26] LABS: #Basophils 0.1 10x3/uL (0.0-0.2); #Eosinphils 0.3 10x3/uL (0.0-0.5); #Monocytes 1.7 10x3/uL (0.0-1.1); #Neutrophils 17.3 10x3/uL (1.5-8.4); %Basophils 0.5 % (0.0-2.0); %Eosinophils 1.4 % (0.0-6.0); %Lymphocytes 8.5 % (18.0-47.0); %Monocytes 7.8 % (0.0-10.0); %Neutrophils 80.5 % (40.0-75.0); Hematocrit 42.3 % (38.8-50.0); Hemoglobin 13.7 g/dL (13.5-17.5); Mean Corpuscular HGB CONC 32.4 g/dL (32.0-36.0); Mean Corpuscular Hemoglobin 30.5 pg (27.0-33.0); Mean Corpuscular Volume 94.2 fl (81.2-95.1); Mean Platelet Volume 10.2 fl (7.4-10.4); Platelet Count 456 10x3/uL (150-450); Red Blood Cell (RBC) Count 4.49 10x6/uL (4.32-5.72); White Blood Cell (WBC) Count 21.5 10x3/uL (3.5-10.5)
[2023-07-19 04:39] LABS: ALT (SGPT) 168 U/L (8-55); AST (SGOT) 90 U/L (5-34); Albumin 2.6 g/dL (3.5-5.0); Alkaline Phosphatase 261 U/L (40-110); Anion Gap 12 mmol/L (10-20); BUN (Urea Nitrogen) 38 mg/dL (8.4-25.7); Bilirubin, Total 0.5 mg/dL (0.2-1.2); Calc. Creatinine Clearance 58 mL/min (70-130); Calcium 9.1 mg/dL (7.8-10.44); Carbon Dioxide 22 mmol/L (22-29); Chloride 119 mmol/L (98-107); Estimated GFR 60; Globulin 4.5 g/dL (2.4-3.5); Glucose 163 mg/dL (70-105); Potassium 3.9 mmol/L (3.5-5.1); Protein, Total 7.1 g/dL (6.0-8.3); Sodium 149 mmol/L (136-145)
[2023-07-19 13:16] LABS: Hemoglobin 12.8 g/dL (13.5-17.5); Platelet Count 450 10x3/uL (150-450)
[2023-07-20 03:33] LABS: #Basophils 0.1 10x3/uL (0.0-0.2); #Eosinphils 0.3 10x3/uL (0.0-0.5); #Monocytes 1.8 10x3/uL (0.0-1.1); #Neutrophils 18.3 10x3/uL (1.5-8.4); %Basophils 0.4 % (0.0-2.0); %Eosinophils 1.2 % (0.0-6.0); %Lymphocytes 8.4 % (18.0-47.0); %Monocytes 7.8 % (0.0-10.0); %Neutrophils 81.2 % (40.0-75.0); Hematocrit 39.8 % (38.8-50.0); Hemoglobin 12.9 g/dL (13.5-17.5); Mean Corpuscular HGB CONC 32.4 g/dL (32.0-36.0); Mean Corpuscular Hemoglobin 31.3 pg (27.0-33.0); Mean Corpuscular Volume 96.6 fl (81.2-95.1); Mean Platelet Volume 10.6 fl (7.4-10.4); Platelet Count 431 10x3/uL (150-450); RBC Distribution Width 13.2 % (11.5-14.5); Red Blood Cell (RBC) Count 4.15 10x6/uL (4.32-5.72); White Blood Cell (WBC) Count 22.6 10x3/uL (3.5-10.5)
[2023-07-20] MEDS: Polyethylene Glycol 3350 17 GM Packet PER TUBE PRN (04:12)
[2023-07-20 04:40] LABS: Anion Gap 14 mmol/L (10-20); BUN (Urea Nitrogen) 38 mg/dL (8.4-25.7); Calc. Creatinine Clearance 65 mL/min (70-130); Carbon Dioxide 21 mmol/L (22-29); Chloride 120 mmol/L (98-107); Estimated GFR 67; Glucose 170 mg/dL (70-105); Magnesium 2.3 mg/dL (1.6-2.6)
[2023-07-20 04:50] LABS: Critical Call Chemistry IMAG.ZTP @ 0449; Sodium 151 mmol/L (136-145)
[2023-07-20] MEDS: Dextrose 5% in Water 500 ML IV SCH (04:59)
[2023-07-20 15:54] LABS: ALV-art Gradient 181.325 mmHg (0-20); Actual Bicarbonate (HCO3a) 22.8 mEq/L (22-28); Analyzer IN Cardio CS ICU; Base Excess (BEa) 0.7 mEq/L (-2.0 to +3.0); CO2 Tension 29.9 mmHg (35.0-45.0); Calcium, Ionized (arterial) 1.22 mmol/L (1.12-1.30); Carboxyhemoglobin (COHb) 0.6 gm% (0.0-3.0); Hematocrit-ABG 43 % (42.0-52.0); Hemoglobin (Hb) 14.5 g/dL (14.0-18.0); O2 Tension (PaO2), arterial 66.5 mmHg (80.0-100.0); Potassium - ABG Lab 4.02 mmol/L (3.70-5.30); Puncture Site RRA; pH, Arterial 7.501 (7.35-7.45)
[2023-07-20 15:55] LABS: ALV-art Gradient 186.075 mmHg (0-20); Actual Bicarbonate (HCO3a) 25.4 mEq/L (22-28); Analyzer IN Cardio CS ICU; Base Excess (BEa) 2.7 mEq/L (-2.0 to +3.0); CO2 Tension 33.3 mmHg (35.0-45.0); Calcium, Ionized (arterial) 1.23 mmol/L (1.12-1.30); Carboxyhemoglobin (COHb) 0.4 gm% (0.0-3.0); Critical Notified By: CP.PH; Hematocrit-ABG 39 % (42.0-52.0); Hemoglobin (Hb) 13.2 g/dL (14.0-18.0); O2 Tension (PaO2), arterial 57.5 mmHg (80.0-100.0); Potassium - ABG Lab 3.92 mmol/L (3.70-5.30); Puncture Site RBA; RapidComm Collect By CP.PH; pH, Arterial 7.501 (7.35-7.45)
[2023-07-20] MEDS: Dextrose 5 %-0.45 % NaCl 1,000 ML IV SCH (16:49)
[2023-07-20] MEDS ORDERED: D5 1/2 NS 500 ML IV SCH (16:59)
[2023-07-21 02:22] LABS: #Basophils 0.1 10x3/uL (0.0-0.2); #Eosinphils 0.4 10x3/uL (0.0-0.5); #Monocytes 1.3 10x3/uL (0.0-1.1); #Neutrophils 15.5 10x3/uL (1.5-8.4); %Basophils 0.4 % (0.0-2.0); %Eosinophils 2.1 % (0.0-6.0); %Lymphocytes 9.3 % (18.0-47.0); %Monocytes 6.9 % (0.0-10.0); %Neutrophils 80.6 % (40.0-75.0); Hematocrit 39.2 % (38.8-50.0); Mean Corpuscular HGB CONC 33.2 g/dL (32.0-36.0); Mean Corpuscular Hemoglobin 31.4 pg (27.0-33.0); Mean Corpuscular Volume 94.7 fl (81.2-95.1); Mean Platelet Volume 10.6 fl (7.4-10.4); Platelet Count 481 10x3/uL (150-450); RBC Distribution Width 12.9 % (11.5-14.5); Red Blood Cell (RBC) Count 4.14 10x6/uL (4.32-5.72); White Blood Cell (WBC) Count 19.2 10x3/uL (3.5-10.5)
[2023-07-21 03:09] LABS: Anion Gap 14 mmol/L (10-20); BUN (Urea Nitrogen) 32 mg/dL (8.4-25.7); Calc. Creatinine Clearance 70 mL/min (70-130); Calcium 9.1 mg/dL (7.8-10.44); Carbon Dioxide 20 mmol/L (22-29); Chloride 117 mmol/L (98-107); Estimated GFR 72; Glucose 134 mg/dL (70-105); Magnesium 2.1 mg/dL (1.6-2.6); Potassium 3.9 mmol/L (3.5-5.1); Sodium 147 mmol/L (136-145)
[2023-07-21 03:32] LABS: ALV-art Gradient 177.425 mmHg (0-20); Actual Bicarbonate (HCO3a) 23.7 mEq/L (22-28); Analyzer IN Cardio CS ICU; CO2 Tension 31.9 mmHg (35.0-45.0); Calcium, Ionized (arterial) 1.19 mmol/L (1.12-1.30); Carboxyhemoglobin (COHb) 0.5 gm% (0.0-3.0); Critical Notified By: Udy, RRT; Hematocrit-ABG 39 % (42.0-52.0); Hemoglobin (Hb) 13.3 g/dL (14.0-18.0); O2 Tension (PaO2), arterial 67.9 mmHg (80.0-100.0); Puncture Site RRA; RapidComm Collect By Udy, RRT; pH, Arterial 7.489 (7.35-7.45)
[2023-07-21 12:50] LABS: Hematocrit 37.2 % (38.8-50.0); Platelet Count 485 10x3/uL (150-450)
[2023-07-21] MEDS: Scopolamine 1 mg/72 hour Patch TOP SCH (22:07)
[2023-07-22 03:12] LABS: #Basophils 0.1 10x3/uL (0.0-0.2); #Eosinphils 0.4 10x3/uL (0.0-0.5); #Monocytes 1.2 10x3/uL (0.0-1.1); #Neutrophils 11.3 10x3/uL (1.5-8.4); %Basophils 0.4 % (0.0-2.0); %Eosinophils 2.6 % (0.0-6.0); %Lymphocytes 9.7 % (18.0-47.0); %Monocytes 8.1 % (0.0-10.0); %Neutrophils 78.6 % (40.0-75.0); Hemoglobin 12.7 g/dL (13.5-17.5); Mean Corpuscular HGB CONC 33.4 g/dL (32.0-36.0); Mean Corpuscular Hemoglobin 31.3 pg (27.0-33.0); Mean Corpuscular Volume 93.6 fl (81.2-95.1); Mean Platelet Volume 10.8 fl (7.4-10.4); Platelet Count 506 10x3/uL (150-450); RBC Distribution Width 12.6 % (11.5-14.5); Red Blood Cell (RBC) Count 4.06 10x6/uL (4.32-5.72); White Blood Cell (WBC) Count 14.4 10x3/uL (3.5-10.5)
[2023-07-22 03:31] LABS: Anion Gap 14 mmol/L (10-20); BUN (Urea Nitrogen) 28 mg/dL (8.4-25.7); Calc. Creatinine Clearance 89 mL/min (70-130); Calcium 8.7 mg/dL (7.8-10.44); Carbon Dioxide 21 mmol/L (22-29); Chloride 114 mmol/L (98-107); Estimated GFR 91; Glucose 128 mg/dL (70-105); Potassium 3.8 mmol/L (3.5-5.1); Sodium 145 mmol/L (136-145)
[2023-07-22 06:46] LABS: Actual Bicarbonate (HCO3a) 25.7 mEq/L (22-28); Analyzer IN Cardio CS ICU; Base Excess (BEa) 2.7 mEq/L (-2.0 to +3.0); CO2 Tension 34.4 mmHg (35.0-45.0); Calcium, Ionized (arterial) 1.19 mmol/L (1.12-1.30); Carboxyhemoglobin (COHb) 0.1 gm% (0.0-3.0); Critical Notified By: Udy, RRT; Hematocrit-ABG 37 % (42.0-52.0); Hemoglobin (Hb) 12.5 g/dL (14.0-18.0); Potassium - ABG Lab 3.74 mmol/L (3.70-5.30); Puncture Site LRA; RapidComm Collect By Udy, RRT; pH, Arterial 7.492 (7.35-7.45)
[2023-07-22] MEDS: Enoxaparin 40 MG (0.4 mL) SYRINGE SC SCH (08:55)
[2023-07-23 04:14] LABS: Anion Gap 11 mmol/L (10-20); BUN (Urea Nitrogen) 28 mg/dL (8.4-25.7); Calc. Creatinine Clearance 84 mL/min (70-130); Calcium 8.6 mg/dL (7.8-10.44); Carbon Dioxide 23 mmol/L (22-29); Chloride 112 mmol/L (98-107); Estimated GFR 86; Glucose 114 mg/dL (70-105); Magnesium 2.1 mg/dL (1.6-2.6); Phosphorus 3.9 mg/dL (2.3-4.7); Sodium 142 mmol/L (136-145)
[2023-07-23 04:34] LABS: #Basophils 0.1 10x3/uL (0.0-0.2); #Eosinphils 0.5 10x3/uL (0.0-0.5); #Neutrophils 7.9 10x3/uL (1.5-8.4); %Basophils 0.6 % (0.0-2.0); %Eosinophils 4.8 % (0.0-6.0); %Lymphocytes 14.7 % (18.0-47.0); %Monocytes 8.5 % (0.0-10.0); %Neutrophils 70.7 % (40.0-75.0); Hematocrit 35.6 % (38.8-50.0); Hemoglobin 11.6 g/dL (13.5-17.5); Mean Corpuscular HGB CONC 32.6 g/dL (32.0-36.0); Mean Corpuscular Hemoglobin 30.9 pg (27.0-33.0); Mean Corpuscular Volume 94.9 fl (81.2-95.1); Mean Platelet Volume 10.8 fl (7.4-10.4); Platelet Count 541 10x3/uL (150-450); RBC Distribution Width 12.5 % (11.5-14.5); Red Blood Cell (RBC) Count 3.75 10x6/uL (4.32-5.72); White Blood Cell (WBC) Count 11.1 10x3/uL (3.5-10.5)
[2023-07-23 05:23] LABS: ALV-art Gradient 138.475 mmHg (0-20); Actual Bicarbonate (HCO3a) 23.4 mEq/L (22-28); Analyzer IN Cardio CS ICU; Base Excess (BEa) 0.6 mEq/L (-2.0 to +3.0); CO2 Tension 31.9 mmHg (35.0-45.0); Calcium, Ionized (arterial) 1.21 mmol/L (1.12-1.30); Carboxyhemoglobin (COHb) 0.3 gm% (0.0-3.0); Critical Notified By: CP.PH; Hematocrit-ABG 36 % (42.0-52.0); Hemoglobin (Hb) 12.3 g/dL (14.0-18.0); O2 Tension (PaO2), arterial 71.2 mmHg (80.0-100.0); Potassium - ABG Lab 3.61 mmol/L (3.70-5.30); Puncture Site RBA; RapidComm Collect By CP.PH; pH, Arterial 7.483 (7.35-7.45)
[2023-07-23] MEDS ORDERED: PROPOFOL 20 ML ONE (11:58)
[2023-07-23] MEDS ORDERED: Rocuronium Bromide 10 MG/ML (10ML VIAL) ONE (11:58)
[2023-07-23] MEDS ORDERED: fentaNYL 50 mcg/mL 1 mL Vial ONE ×2 (11:58→13:09)
[2023-07-23] MEDS ORDERED: Midazolam HCl 2 mg/2 ml Vial ONE ×2 (11:59→13:18)
[2023-07-23] MEDS ORDERED: Bupivacaine PF 0.5% 30 ML VIAL ONE (12:07)
[2023-07-23] MEDS ORDERED: EPINEPHrine 1 MG/ML VIAL ONE (12:07)
[2023-07-23] MEDS ORDERED: KETAMINE 100 MG/ML (5ML VIAL) ONE (12:10)
[2023-07-23 14:04] LABS: Hematocrit 41.2 % (38.8-50.0); Hemoglobin 13.7 g/dL (13.5-17.5); Platelet Count 759 10x3/uL (150-450)
[2023-07-23] MEDS: Atropine Sulfate 1 mg/10 ml Syringe ONE (18:49)
[2023-07-24 03:15] LABS: #Basophils 0.1 10x3/uL (0.0-0.2); #Eosinphils 0.2 10x3/uL (0.0-0.5); #Monocytes 1.2 10x3/uL (0.0-1.1); #Neutrophils 13.3 10x3/uL (1.5-8.4); %Basophils 0.5 % (0.0-2.0); %Lymphocytes 10.1 % (18.0-47.0); %Monocytes 7.5 % (0.0-10.0); %Neutrophils 80.2 % (40.0-75.0); Hematocrit 39.9 % (38.8-50.0); Hemoglobin 13.2 g/dL (13.5-17.5); Mean Corpuscular HGB CONC 33.1 g/dL (32.0-36.0); Mean Corpuscular Hemoglobin 30.5 pg (27.0-33.0); Mean Corpuscular Volume 92.1 fl (81.2-95.1); Mean Platelet Volume 10.3 fl (7.4-10.4); Platelet Count 851 10x3/uL (150-450); RBC Distribution Width 12.3 % (11.5-14.5); Red Blood Cell (RBC) Count 4.33 10x6/uL (4.32-5.72); White Blood Cell (WBC) Count 16.6 10x3/uL (3.5-10.5)
[2023-07-24 04:47] LABS: ALV-art Gradient 202.325 mmHg (0-20); Actual Bicarbonate (HCO3a) 22.4 mEq/L (22-28); Analyzer IN Cardio CS ICU; Base Excess (BEa) -0.3 mEq/L (-2.0 to +3.0); CO2 Tension 31.1 mmHg (35.0-45.0); Calcium, Ionized (arterial) 1.21 mmol/L (1.12-1.30); Carboxyhemoglobin (COHb) 0.3 gm% (0.0-3.0); Hematocrit-ABG 40 % (42.0-52.0); Hemoglobin (Hb) 13.7 g/dL (14.0-18.0); O2 Tension (PaO2), arterial 115.3 mmHg (80.0-100.0); Potassium - ABG Lab 3.88 mmol/L (3.70-5.30); Puncture Site RBA; pH, Arterial 7.475 (7.35-7.45)
[2023-07-24] MEDS: Furosemide 40 MG (4 mL) VIAL SLOW IVP SCH ×2 (14:00→21:51)
[2023-07-25 03:13] LABS: #Basophils 0.1 10x3/uL (0.0-0.2); #Eosinphils 0.5 10x3/uL (0.0-0.5); #Monocytes 1.3 10x3/uL (0.0-1.1); #Neutrophils 9.9 10x3/uL (1.5-8.4); %Basophils 0.6 % (0.0-2.0); %Eosinophils 3.9 % (0.0-6.0); %Lymphocytes 14.1 % (18.0-47.0); %Monocytes 9.2 % (0.0-10.0); %Neutrophils 71.8 % (40.0-75.0); Hematocrit 35.4 % (38.8-50.0); Hemoglobin 12.1 g/dL (13.5-17.5); Mean Corpuscular HGB CONC 34.2 g/dL (32.0-36.0); Mean Corpuscular Hemoglobin 31.3 pg (27.0-33.0); Mean Corpuscular Volume 91.7 fl (81.2-95.1); Mean Platelet Volume 10.2 fl (7.4-10.4); Platelet Count 814 10x3/uL (150-450); RBC Distribution Width 12.8 % (11.5-14.5); Red Blood Cell (RBC) Count 3.86 10x6/uL (4.32-5.72); White Blood Cell (WBC) Count 13.7 10x3/uL (3.5-10.5)
[2023-07-25 03:32] LABS: ALT (SGPT) 101 U/L (8-55); AST (SGOT) 45 U/L (5-34); Albumin 2.7 g/dL (3.5-5.0); Alkaline Phosphatase 253 U/L (40-110); Anion Gap 12 mmol/L (10-20); BUN (Urea Nitrogen) 34 mg/dL (8.4-25.7); Bilirubin, Total 0.3 mg/dL (0.2-1.2); Calc. Creatinine Clearance 73 mL/min (70-130); Calcium 8.9 mg/dL (7.8-10.44); Carbon Dioxide 25 mmol/L (22-29); Chloride 108 mmol/L (98-107); Estimated GFR 72; Globulin 4.2 g/dL (2.4-3.5); Glucose 146 mg/dL (70-105); Magnesium 2.1 mg/dL (1.6-2.6); Phosphorus 3.4 mg/dL (2.3-4.7); Potassium 3.6 mmol/L (3.5-5.1); Protein, Total 6.9 g/dL (6.0-8.3); Sodium 141 mmol/L (136-145)
[2023-07-25 03:41] LABS: Actual Bicarbonate (HCO3a) 26.3 mEq/L (22-28); Analyzer IN Cardio CS ICU; CO2 Tension 35.9 mmHg (35.0-45.0); Calcium, Ionized (arterial) 1.19 mmol/L (1.12-1.30); Carboxyhemoglobin (COHb) 0.3 gm% (0.0-3.0); Critical Notified By: Udy, RRT; Hematocrit-ABG 39 % (42.0-52.0); Hemoglobin (Hb) 13.4 g/dL (14.0-18.0); O2 Tension (PaO2), arterial 96.4 mmHg (80.0-100.0); Puncture Site LRA; RapidComm Collect By Udy, RRT; pH, Arterial 7.482 (7.35-7.45)
[2023-07-25 03:42] LABS: ALV-art Gradient 108.275 mmHg (0-20)
[2023-07-25 12:55] LABS: Hematocrit 36.3 % (38.8-50.0); Hemoglobin 12.4 g/dL (13.5-17.5); Platelet Count 852 10x3/uL (150-450)
[2023-07-26 03:15] LABS: ALV-art Gradient 101.825 mmHg (0-20); Actual Bicarbonate (HCO3a) 28.1 mEq/L (22-28); Analyzer IN Cardio CS ICU; Base Excess (BEa) 4.4 mEq/L (-2.0 to +3.0); CO2 Tension 38.5 mmHg (35.0-45.0); Calcium, Ionized (arterial) 1.21 mmol/L (1.12-1.30); Carboxyhemoglobin (COHb) 0.3 gm% (0.0-3.0); Hematocrit-ABG 38 % (42.0-52.0); Hemoglobin (Hb) 12.8 g/dL (14.0-18.0); O2 Tension (PaO2), arterial 99.6 mmHg (80.0-100.0); Potassium - ABG Lab 3.56 mmol/L (3.70-5.30); Puncture Site LRA; pH, Arterial 7.481 (7.35-7.45)
[2023-07-26 03:26] LABS: #Basophils 0.1 10x3/uL (0.0-0.2); #Eosinphils 0.6 10x3/uL (0.0-0.5); #Monocytes 1.2 10x3/uL (0.0-1.1); #Neutrophils 8.1 10x3/uL (1.5-8.4); %Basophils 0.4 % (0.0-2.0); %Lymphocytes 14.6 % (18.0-47.0); %Monocytes 10.1 % (0.0-10.0); %Neutrophils 69.5 % (40.0-75.0); Hematocrit 35.4 % (38.8-50.0); Mean Corpuscular HGB CONC 33.9 g/dL (32.0-36.0); Mean Corpuscular Hemoglobin 31.1 pg (27.0-33.0); Mean Corpuscular Volume 91.7 fl (81.2-95.1); Mean Platelet Volume 10.2 fl (7.4-10.4); Platelet Count 815 10x3/uL (150-450); RBC Distribution Width 12.8 % (11.5-14.5); Red Blood Cell (RBC) Count 3.86 10x6/uL (4.32-5.72); White Blood Cell (WBC) Count 11.7 10x3/uL (3.5-10.5)
[2023-07-27] MEDS: oxyCODONE 5 MG TAB PO SCH (00:19)
[2023-07-27 03:18] LABS: #Basophils 0.1 10x3/uL (0.0-0.2); #Eosinphils 0.6 10x3/uL (0.0-0.5); #Monocytes 1.1 10x3/uL (0.0-1.1); #Neutrophils 8.3 10x3/uL (1.5-8.4); %Basophils 0.7 % (0.0-2.0); %Eosinophils 4.9 % (0.0-6.0); %Lymphocytes 12.6 % (18.0-47.0); %Monocytes 9.3 % (0.0-10.0); %Neutrophils 72.1 % (40.0-75.0); Hematocrit 38.4 % (38.8-50.0); Hemoglobin 12.8 g/dL (13.5-17.5); Mean Corpuscular HGB CONC 33.3 g/dL (32.0-36.0); Mean Corpuscular Hemoglobin 30.9 pg (27.0-33.0); Mean Corpuscular Volume 92.8 fl (81.2-95.1); Platelet Count 870 10x3/uL (150-450); RBC Distribution Width 12.8 % (11.5-14.5); Red Blood Cell (RBC) Count 4.14 10x6/uL (4.32-5.72); White Blood Cell (WBC) Count 11.5 10x3/uL (3.5-10.5)
[2023-07-27 12:37] LABS: Hematocrit 40.6 % (38.8-50.0); Hemoglobin 13.3 g/dL (13.5-17.5); Platelet Count 832 10x3/uL (150-450)
[2023-07-27] MEDS: HYDROcodone/Acetaminophen 10/325 mg Tablet PER TUBE PRN (16:32)
[2023-07-28] MEDS: Morphine 4 MG/ML VIAL SLOW IVP PRN (00:22)
[2023-07-28 03:27] LABS: #Basophils 0.1 10x3/uL (0.0-0.2); #Eosinphils 0.4 10x3/uL (0.0-0.5); #Monocytes 1.2 10x3/uL (0.0-1.1); #Neutrophils 14.7 10x3/uL (1.5-8.4); %Basophils 0.4 % (0.0-2.0); %Eosinophils 2.5 % (0.0-6.0); %Lymphocytes 7.9 % (18.0-47.0); %Monocytes 6.6 % (0.0-10.0); %Neutrophils 82.3 % (40.0-75.0); Hematocrit 40.8 % (38.8-50.0); Hemoglobin 13.6 g/dL (13.5-17.5); Mean Corpuscular HGB CONC 33.3 g/dL (32.0-36.0); Mean Corpuscular Hemoglobin 31.1 pg (27.0-33.0); Mean Corpuscular Volume 93.4 fl (81.2-95.1); Mean Platelet Volume 10.5 fl (7.4-10.4); Platelet Count 905 10x3/uL (150-450); RBC Distribution Width 12.5 % (11.5-14.5); Red Blood Cell (RBC) Count 4.37 10x6/uL (4.32-5.72); White Blood Cell (WBC) Count 17.9 10x3/uL (3.5-10.5)
[2023-07-28 04:14] LABS: Bilirubin Neg (Negative); Blood, Urine 250 (Negative); Glucose, Urine (Dipstick) Normal (Negative); Ketone, Urine Negative (Negative); Leukocyte Negative (Negative); Nitrite Negative (Negative); Protein, Urine (Dipstick) 15 mg/dl (Neg-Trace); Urobilinogen Normal mg/dL (Less than 2); pH, Urine 6.5 (5.0-9.0)
[2023-07-28 04:20] LABS: Clarity Clear (Clear)
[2023-07-28 04:22] LABS: Bacteria/HPF None Seen HPF (None Seen); CAUTI Indications for Culture Fever or rigors; Squamous Epithelial 0-3 HPF (0-3); WBC/HPF 0-3 HPF (0-3); Yeast-Budding 1+ HPF (None Seen)
[2023-07-28 04:23] LABS: Urine Culture Reflex No No
[2023-07-28 04:55] LABS: SARS-CoV-2 NAA Rapid Test Not Detected (NotDetected)
[2023-07-28] MEDS ORDERED: Piperacillin/Tazobactam 3.375 GM in Sodium Chloride 0.9% 100 ML IVPB SCH (07:30)
[2023-07-28 08:46] LABS: ALT (SGPT) 120 U/L (8-55); AST (SGOT) 70 U/L (5-34); Albumin 3.3 g/dL (3.5-5.0); Alkaline Phosphatase 301 U/L (40-110); Anion Gap 16 mmol/L (10-20); BUN (Urea Nitrogen) 36 mg/dL (8.4-25.7); Bilirubin, Total 0.5 mg/dL (0.2-1.2); Calc. Creatinine Clearance 90 mL/min (70-130); Calcium 9.8 mg/dL (7.8-10.44); Carbon Dioxide 26 mmol/L (22-29); Chloride 103 mmol/L (98-107); Estimated GFR 83; Glucose 160 mg/dL (70-105); Potassium 4.1 mmol/L (3.5-5.1); Protein, Total 8.3 g/dL (6.0-8.3); Sodium 141 mmol/L (136-145)
[2023-07-28] MEDS: Glycopyrrolate 0.4 MG/ 2 ML VIAL SLOW IVP SCH (09:30)
[2023-07-28] MEDS: Famotidine/PF 20 mg/2ml Vial SLOW IVP SCH (09:30)
[2023-07-28] MEDS: Piperacillin/Tazobactam 3.375 GM in Sodium Chloride 0.9% 100 ML IVPB SCH ×2 (09:31→15:21)
[2023-07-28] MEDS: Valsartan 80 MG TAB PO SCH (10:06)
[2023-07-28] MEDS ORDERED: Lidocaine 1% PF 5 ML VIAL ONE (10:06)
[2023-07-28] MEDS: Ivabradine 5 MG TAB PO SCH (10:06)
[2023-07-28] MEDS ORDERED: Sodium Bicarbonate 2.5 MEQ/5 ML SDV ONE (10:06)
[2023-07-28 11:59] LABS: CSF, Glucose 83 mg/dL (40-70); CSF, Protein 132 mg/dL (15-40)
[2023-07-28 12:01] LABS: CSF Source CSF; Clarity Clear (Clear); Tube # 2
[2023-07-28 12:03] LABS: CSF RBC Count - Manual 1 /cu.mm (None Seen); CSF WBC/NonHematics Count-Man 2 /cu.mm (0-5)
[2023-07-28 12:16] LABS: Color Of CSF Supernatant COLORLESS (Colorless); Tube # 1; Unspun CSF Color COLORLESS (Colorless)
[2023-07-28] MEDS: PRIVIGEN IVPB SCH (18:30)
[2023-07-29 03:02] LABS: #Basophils 0.1 10x3/uL (0.0-0.2); #Eosinphils 0.4 10x3/uL (0.0-0.5); #Monocytes 0.9 10x3/uL (0.0-1.1); #Neutrophils 11.6 10x3/uL (1.5-8.4); %Basophils 0.7 % (0.0-2.0); %Eosinophils 2.6 % (0.0-6.0); %Lymphocytes 10.2 % (18.0-47.0); %Monocytes 6.5 % (0.0-10.0); %Neutrophils 79.7 % (40.0-75.0); Hematocrit 38.3 % (38.8-50.0); Hemoglobin 12.7 g/dL (13.5-17.5); Mean Corpuscular HGB CONC 33.2 g/dL (32.0-36.0); Mean Corpuscular Hemoglobin 30.9 pg (27.0-33.0); Mean Corpuscular Volume 93.2 fl (81.2-95.1); Mean Platelet Volume 10.1 fl (7.4-10.4); Platelet Count 831 10x3/uL (150-450); RBC Distribution Width 12.7 % (11.5-14.5); Red Blood Cell (RBC) Count 4.11 10x6/uL (4.32-5.72); White Blood Cell (WBC) Count 14.5 10x3/uL (3.5-10.5)
[2023-07-29 04:03] LABS: ALT (SGPT) 105 U/L (8-55); AST (SGOT) 52 U/L (5-34); Alkaline Phosphatase 239 U/L (40-110); Anion Gap 15 mmol/L (10-20); BUN (Urea Nitrogen) 37 mg/dL (8.4-25.7); Bilirubin, Total 0.4 mg/dL (0.2-1.2); Calc. Creatinine Clearance 91 mL/min (70-130); Calcium 9.6 mg/dL (7.8-10.44); Carbon Dioxide 27 mmol/L (22-29); Chloride 102 mmol/L (98-107); Estimated GFR 85; Globulin 4.8 g/dL (2.4-3.5); Glucose 119 mg/dL (70-105); Protein, Total 7.8 g/dL (6.0-8.3); Sodium 140 mmol/L (136-145)
[2023-07-29] MEDS: Glycopyrrolate 0.2 MG/ML 5 ML SYRINGE SLOW IVP SCH (09:53)
[2023-07-29 12:53] LABS: Hematocrit 41.8 % (38.8-50.0); Hemoglobin 13.4 g/dL (13.5-17.5); Platelet Count 702 10x3/uL (150-450)
[2023-07-29] MEDS: PRIVIGEN IVPB SCH (14:55)
[2023-07-30 03:02] LABS: #Basophils 0.1 10x3/uL (0.0-0.2); #Eosinphils 0.5 10x3/uL (0.0-0.5); #Monocytes 1.1 10x3/uL (0.0-1.1); #Neutrophils 8.7 10x3/uL (1.5-8.4); %Basophils 0.6 % (0.0-2.0); %Eosinophils 4.2 % (0.0-6.0); %Lymphocytes 11.1 % (18.0-47.0); %Monocytes 9.1 % (0.0-10.0); %Neutrophils 74.7 % (40.0-75.0); Hematocrit 39.9 % (38.8-50.0); Hemoglobin 13.1 g/dL (13.5-17.5); Mean Corpuscular HGB CONC 32.8 g/dL (32.0-36.0); Mean Corpuscular Hemoglobin 29.9 pg (27.0-33.0); Mean Corpuscular Volume 91.1 fl (81.2-95.1); Mean Platelet Volume 9.7 fl (7.4-10.4); Platelet Count 706 10x3/uL (150-450); RBC Distribution Width 12.7 % (11.5-14.5); Red Blood Cell (RBC) Count 4.38 10x6/uL (4.32-5.72); White Blood Cell (WBC) Count 11.6 10x3/uL (3.5-10.5)
[2023-07-30] MEDS: PRIVIGEN IVPB SCH (14:01)
[2023-07-31 03:32] LABS: #Basophils 0.1 10x3/uL (0.0-0.2); #Eosinphils 0.4 10x3/uL (0.0-0.5); #Neutrophils 6.6 10x3/uL (1.5-8.4); %Basophils 0.7 % (0.0-2.0); %Eosinophils 4.2 % (0.0-6.0); %Lymphocytes 16.1 % (18.0-47.0); %Monocytes 10.3 % (0.0-10.0); %Neutrophils 68.4 % (40.0-75.0); Hematocrit 40.2 % (38.8-50.0); Hemoglobin 13.4 g/dL (13.5-17.5); Mean Corpuscular HGB CONC 33.3 g/dL (32.0-36.0); Mean Corpuscular Hemoglobin 30.6 pg (27.0-33.0); Mean Corpuscular Volume 91.8 fl (81.2-95.1); Mean Platelet Volume 9.9 fl (7.4-10.4); Platelet Count 867 10x3/uL (150-450); RBC Distribution Width 12.5 % (11.5-14.5); Red Blood Cell (RBC) Count 4.38 10x6/uL (4.32-5.72); White Blood Cell (WBC) Count 9.7 10x3/uL (3.5-10.5)
[2023-07-31 08:56] LABS: ALT (SGPT) 85 U/L (8-55); AST (SGOT) 42 U/L (5-34); Alkaline Phosphatase 244 U/L (40-110); Anion Gap 12 mmol/L (10-20); BUN (Urea Nitrogen) 38 mg/dL (8.4-25.7); Bilirubin, Total 0.4 mg/dL (0.2-1.2); Calc. Creatinine Clearance 75 mL/min (70-130); Calcium 9.3 mg/dL (7.8-10.44); Carbon Dioxide 31 mmol/L (22-29); Chloride 100 mmol/L (98-107); Estimated GFR 69; Globulin 5.8 g/dL (2.4-3.5); Glucose 153 mg/dL (70-105); Protein, Total 8.8 g/dL (6.0-8.3); Sodium 139 mmol/L (136-145)
[2023-07-31 09:12] LABS: Hematocrit 38.7 % (38.8-50.0); Hemoglobin 13.2 g/dL (13.5-17.5); Platelet Count 890 10x3/uL (150-450)
[2023-07-31 09:47] VITALS: BMI 20.5
[2023-07-31] MEDS: PRIVIGEN IVPB SCH (13:56)
[2023-08-01 03:58] LABS: #Basophils 0.1 10x3/uL (0.0-0.2); #Eosinphils 0.4 10x3/uL (0.0-0.5); #Monocytes 1.7 10x3/uL (0.0-1.1); #Neutrophils 11.4 10x3/uL (1.5-8.4); %Basophils 0.6 % (0.0-2.0); %Eosinophils 2.5 % (0.0-6.0); %Lymphocytes 11.5 % (18.0-47.0); %Monocytes 11.1 % (0.0-10.0); %Neutrophils 73.7 % (40.0-75.0); Hematocrit 38.2 % (38.8-50.0); Hemoglobin 12.7 g/dL (13.5-17.5); Mean Corpuscular HGB CONC 33.2 g/dL (32.0-36.0); Mean Corpuscular Hemoglobin 30.3 pg (27.0-33.0); Mean Corpuscular Volume 91.2 fl (81.2-95.1); Mean Platelet Volume 9.8 fl (7.4-10.4); Platelet Count 799 10x3/uL (150-450); RBC Distribution Width 12.5 % (11.5-14.5); Red Blood Cell (RBC) Count 4.19 10x6/uL (4.32-5.72); White Blood Cell (WBC) Count 15.5 10x3/uL (3.5-10.5)
[2023-08-01 09:56] LABS: Anion Gap 16 mmol/L (10-20); BUN (Urea Nitrogen) 38 mg/dL (8.4-25.7); Calc. Creatinine Clearance 67 mL/min (70-130); Calcium 9.6 mg/dL (7.8-10.44); Carbon Dioxide 26 mmol/L (22-29); Chloride 100 mmol/L (98-107); Estimated GFR 66; Glucose 192 mg/dL (70-105); Potassium 3.9 mmol/L (3.5-5.1); Sodium 138 mmol/L (136-145)
[2023-08-01] MEDS: Milk Of Magnesia 30 ML UDCUP PER TUBE SCH (13:51)
[2023-08-01] MEDS: Bisacodyl 5 MG TAB PO SCH (13:51)
[2023-08-02 04:29] LABS: #Basophils 0.1 10x3/uL (0.0-0.2); #Eosinphils 0.2 10x3/uL (0.0-0.5); #Monocytes 1.8 10x3/uL (0.0-1.1); #Neutrophils 13.5 10x3/uL (1.5-8.4); %Basophils 0.3 % (0.0-2.0); %Eosinophils 1.2 % (0.0-6.0); %Lymphocytes 9.4 % (18.0-47.0); %Monocytes 10.3 % (0.0-10.0); %Neutrophils 78.3 % (40.0-75.0); Hematocrit 37.4 % (38.8-50.0); Hemoglobin 12.6 g/dL (13.5-17.5); Mean Corpuscular HGB CONC 33.7 g/dL (32.0-36.0); Mean Corpuscular Hemoglobin 31.2 pg (27.0-33.0); Mean Corpuscular Volume 92.6 fl (81.2-95.1); Mean Platelet Volume 9.9 fl (7.4-10.4); Platelet Count 674 10x3/uL (150-450); RBC Distribution Width 12.6 % (11.5-14.5); Red Blood Cell (RBC) Count 4.04 10x6/uL (4.32-5.72); White Blood Cell (WBC) Count 17.2 10x3/uL (3.5-10.5)
[2023-08-02 04:40] LABS: ALT (SGPT) 66 U/L (8-55); AST (SGOT) 42 U/L (5-34); Albumin 2.9 g/dL (3.5-5.0); Alkaline Phosphatase 232 U/L (40-110); Anion Gap 17 mmol/L (10-20); BUN (Urea Nitrogen) 41 mg/dL (8.4-25.7); Bilirubin, Total 0.5 mg/dL (0.2-1.2); Calc. Creatinine Clearance 63 mL/min (70-130); Calcium 9.6 mg/dL (7.8-10.44); Carbon Dioxide 25 mmol/L (22-29); Chloride 101 mmol/L (98-107); Estimated GFR 61; Globulin 6.1 g/dL (2.4-3.5); Glucose 126 mg/dL (70-105); Magnesium 2.2 mg/dL (1.6-2.6); Potassium 3.7 mmol/L (3.5-5.1); Sodium 139 mmol/L (136-145)
[2023-08-02 16:00] LABS: Legionella Urinary Ag Negative (Negative); Strep pneumo Urine Ag NEGATIVE (NEGATIVE)
[2023-08-02] MEDS: Bisacodyl 10 MG SUPP PR PRN (16:55)
[2023-08-03 03:28] LABS: #Basophils 0.1 10x3/uL (0.0-0.2); #Eosinphils 0.4 10x3/uL (0.0-0.5); #Monocytes 1.8 10x3/uL (0.0-1.1); #Neutrophils 11.5 10x3/uL (1.5-8.4); %Basophils 0.4 % (0.0-2.0); %Eosinophils 2.2 % (0.0-6.0); %Lymphocytes 11.6 % (18.0-47.0); %Monocytes 11.2 % (0.0-10.0); Hematocrit 39.2 % (38.8-50.0); Hemoglobin 12.7 g/dL (13.5-17.5); Mean Corpuscular HGB CONC 32.4 g/dL (32.0-36.0); Mean Corpuscular Hemoglobin 30.7 pg (27.0-33.0); Mean Corpuscular Volume 94.7 fl (81.2-95.1); Mean Platelet Volume 10.2 fl (7.4-10.4); Platelet Count 687 10x3/uL (150-450); RBC Distribution Width 12.8 % (11.5-14.5); Red Blood Cell (RBC) Count 4.14 10x6/uL (4.32-5.72); White Blood Cell (WBC) Count 15.6 10x3/uL (3.5-10.5)
[2023-08-03 03:31] LABS: INR-International Normal Ratio 1.1; PTT 29.5 sec (22.0-33.0); Prothrombin Time 11.9 sec (9.5-12.1)
[2023-08-03 03:43] LABS: ALT (SGPT) 72 U/L (8-55); AST (SGOT) 47 U/L (5-34); Albumin 2.8 g/dL (3.5-5.0); Alkaline Phosphatase 224 U/L (40-110); Anion Gap 14 mmol/L (10-20); BUN (Urea Nitrogen) 50 mg/dL (8.4-25.7); Bilirubin, Total 0.5 mg/dL (0.2-1.2); Calc. Creatinine Clearance 60 mL/min (70-130); Calcium 9.6 mg/dL (7.8-10.44); Carbon Dioxide 29 mmol/L (22-29); Chloride 102 mmol/L (98-107); Estimated GFR 57; Globulin 6.7 g/dL (2.4-3.5); Glucose 113 mg/dL (70-105); Magnesium 2.5 mg/dL (1.6-2.6); Potassium 3.6 mmol/L (3.5-5.1); Protein, Total 9.5 g/dL (6.0-8.3); Sodium 141 mmol/L (136-145)
[2023-08-03] MEDS: Furosemide 40 MG (4 mL) VIAL SLOW IVP SCH (08:05)
[2023-08-03] MEDS ORDERED: hydrALAZINE 20 MG/ML VIAL SLOW IVP PRN (08:53)
[2023-08-03 16:14] LABS: CSF IgG Index 0.5 (0.0-0.7); CSF IgG Synthesis Rate 18.4 mg/day (-9.9 TO +3.3); IgG Serum 1666 mg/dL (603-1613); IgG/Alb CSF 0.29 (0.00-0.25)
[2023-08-03 17:36] VITALS: BP 110/67; TEMP 98.8
[2023-08-04] MEDS ORDERED: Furosemide 40 MG TAB PO SCH (07:30)
[2023-08-05 22:37] LABS: Mycoplasma pneumoniae IgG AB 479 U/mL (0-99); Mycoplasma pneumoniae IgM AB 1189 U/mL (0-769)
== END 2023-08-03 18:30 | disposition short-term general hospital (02) | DRG 4 ==
LOC: CSHERS 21:56 → CSHERHOLD 07-08 00:25 → CSHIMCU 07-08 06:30 → UNDODISIN 07-19 16:54
PROVIDERS: ADMIT Student in an Organized Health Care Education/Training Program; ATTEND Family Medicine
PROC: 03HY32Z Insertion of Monitoring Device into Upper Artery, Percutaneous Approach (ICD-10-PCS; principal; 2023-07-11)
PROC: 4A133B1 Monitoring of Arterial Pressure, Peripheral, Percutaneous Approach (ICD-10-PCS; 2023-07-11)
PROC: 4A133J1 Monitoring of Arterial Pulse, Peripheral, Percutaneous Approach (ICD-10-PCS; 2023-07-11)
PROC: 02HV33Z Insertion of Infusion Device into Superior Vena Cava, Percutaneous Approach (ICD-10-PCS; 2023-07-11)
PROC: B548ZZA Ultrasonography of Superior Vena Cava, Guidance (ICD-10-PCS; 2023-07-11)
PROC: 5A1955Z Respiratory Ventilation, Greater than 96 Consecutive Hours (ICD-10-PCS; 2023-07-11)
PROC: 0BH17EZ Insertion of Endotracheal Airway into Trachea, Via Natural or Artificial Opening (ICD-10-PCS; 2023-07-11)
PROC: 3E033XZ Introduction of Vasopressor into Peripheral Vein, Percutaneous Approach (ICD-10-PCS; 2023-07-11)
PROC: 4A133R1 Monitoring of Arterial Saturation, Peripheral, Percutaneous Approach (ICD-10-PCS; 2023-07-21)
PROC: 0B113Z4 Bypass Trachea to Cutaneous, Percutaneous Approach (ICD-10-PCS; 2023-07-23)
PROC: 0DH63UZ Insertion of Feeding Device into Stomach, Percutaneous Approach (ICD-10-PCS; 2023-07-23)
PROC: 009U3ZX Drainage of Spinal Canal, Percutaneous Approach, Diagnostic (ICD-10-PCS; 2023-07-28)
PROC: B01B1ZZ Fluoroscopy of Spinal Cord using Low Osmolar Contrast (ICD-10-PCS; 2023-07-28)
PROC: 30233S1 Transfusion of Nonautologous Globulin into Peripheral Vein, Percutaneous Approach (ICD-10-PCS; 2023-07-28)
DX: I16.1 Hypertensive emergency (principal); A41.9 Sepsis, unspecified organism; G93.41 Metabolic encephalopathy; I46.9 Cardiac arrest, cause unspecified; J96.01 Acute respiratory failure with hypoxia; J96.02 Acute respiratory failure with hypercapnia; J69.0 Pneumonitis due to inhalation of food and vomit; I50.23 Acute on chronic systolic (congestive) heart failure; I42.8 Other cardiomyopathies; I16.9 Hypertensive crisis, unspecified; I24.89 Other forms of acute ischemic heart disease; N17.9 Acute kidney failure, unspecified; I5A Non-ischemic myocardial injury (non-traumatic); F10.139 Alcohol abuse with withdrawal, unspecified; E87.0 Hyperosmolality and hypernatremia; E87.1 Hypo-osmolality and hyponatremia; G72.81 Critical illness myopathy; E44.0 Moderate protein-calorie malnutrition; I13.0 Hypertensive heart and chronic kidney disease with heart failure and stage 1 through stage 4 chronic kidney disease, or unspecified chronic kidney disease; I25.10 Atherosclerotic heart disease of native coronary artery without angina pectoris; N18.31 Chronic kidney disease, stage 3a; I95.9 Hypotension, unspecified; E87.5 Hyperkalemia; K59.00 Constipation, unspecified; R33.9 Retention of urine, unspecified; Z11.52 Encounter for screening for COVID-19; Z86.73 Personal history of transient ischemic attack (TIA), and cerebral infarction without residual deficits; Z86.718 Personal history of other venous thrombosis and embolism; Z91.148 Patient's other noncompliance with medication regimen for other reason
CPT/HCPCS: 36415; 36416; 36600; 62270; 70450; 70496; 70498; 70551; 71045; 72156; 72158; 76705; 80048; 80053; 80061; 80076; 80202; 81001; 82040; 82042; 82085; 82550; 82607; 82784; 82805; 82945; 83516; 83519; 83520; 83735; 83880; 83916; 84100; 84145; 84157; 84425; 84439; 84443; 84481; 84484; 85014; 85018; 85025; 85049; 85610; 85730; 86038; 86146; 86160; 86225; 86376; 87040; 87070; 87081; 87086; 87205; 87449; 87899; 89051; 93005; 93306; 93880; 93970; 94002; 94003; 94640; 94760; 94762; 96374; 97139; J0171; J0456; J0612; J0665; J0692; J0696; J1120; J1459; J1644; J1650; J1815; J1885; J1940; J2060; J2248; J2250; J2270; J2272; J2405; J2543; J2704; J3010; J3370; J3475; J3490; J7042; J7050; J7070; J7999; Q9967; S0028; U0002